=== PATIENT | male | born 1955 | race Caucasian/White ===

== ENCOUNTER 2018-11-04 14:27 | Inpatient (IN) | payer MEDICARE, OTHER ==
[~2018-11-04] VITALS: Ht 182.9 cm; Wt 77.0 kg
[2018-11-04 15:05] LABS: BASOPHILS % (AUTO) 0.1 % (0-1); EOSINOPHILS % (AUTO) 0 % (0-6); HEMATOCRIT 35.8 % (42.0-52.0); HEMOGLOBIN 11.7 g/dl (14.0-17.9); LYMPHOCYTES # (AUTO) 0.5 X10'3 (1.1-4.8); LYMPHOCYTES % (AUTO) 2.3 % (21-51); MEAN CORPUSCULAR HEMOGLOBIN 31.5 PG (27.0-31.0); MEAN CORPUSCULAR HGB CONC 32.7 % (33.0-36.5); MEAN CORPUSCULAR VOLUME 96.1 FL (78-98); MEAN PLATELET VOLUME 8.4 FL (7.4-10.4); MONOCYTES # (AUTO) 0.1 X10'3 (0-0.9); MONOCYTES % (AUTO) 0.6 % (2-12); PLATELET COUNT 248 X10'3 (140-440); RED BLOOD COUNT 3.73 X10'6 (4.70-6.10); RED CELL DISTRIBUTION WIDTH 14.6 % (11.5-14.5); WHITE BLOOD COUNT 19.6 X10'3 (4.5-11.0)
[2018-11-04 15:17] LABS: PLATELET ESTIMATE NORMAL; TOTAL CELLS COUNTED 100
[2018-11-04 15:19] LABS: ALANINE AMINOTRANSFERASE 20 U/L (12-78); ALBUMIN 2.5 G/DL (3.4-5.0); ALBUMIN/GLOBULIN RATIO 0.5 (1.1-1.5); ALKALINE PHOSPHATASE 90 IU/L (46-116); ANION GAP 14 (8-16); ASPARTATE AMINO TRANSFERASE 26 U/L (10-37); BILIRUBIN,TOTAL 0.3 MG/DL (0.1-1.0); BLOOD UREA NITROGEN 34 MG/DL (7-18); BUN/CREATININE RATIO 22.4 (5.4-32.0); CALCIUM 7.9 MG/DL (8.5-10.1); CHLORIDE 104 MMOL/L (99-107); CREATININE 1.52 MG/DL (0.60-1.10); GLUCOSE 85 MG/DL (70-104); POTASSIUM 3.8 MMOL/L (3.5-5.1); SODIUM 140 MMOL/L (135-145); TOTAL CARBON DIOXIDE 22.4 MMOL/L (24-32); TOTAL PROTEIN 7.6 G/DL (6.4-8.2); eGFR 47 ML/MIN
[2018-11-04] MEDS: normal saline 1000ml 1,000 ML IV SCH ×3 (15:30→19:01)
[2018-11-04] MEDS ORDERED: ondansetron/PF 4mg/2ml inj IV PRN (16:10)
[2018-11-04] MEDS ORDERED: magnesium hydroxide 30ml (MOM) UD suspension PO PRN (16:10)
[2018-11-04] MEDS ORDERED: mag hydrox/Alum hydrox/simeth 30ml oral suspension PO PRN (16:10)
[2018-11-04] MEDS ORDERED: acetaminophen 325mg tablet PO PRN (16:10)
[2018-11-04] MEDS: piperacillin/tazo 3.375gm/50ml 50 ML IV SCH (18:15)
[2018-11-04] MEDS: ipratropium/albuterol 3ml nebule NEB SCH ×2 (18:53→23:01)
[2018-11-04] MEDS: enoxaparin 80mg/0.8ml syringe SUBCUT SCH (20:19)
[2018-11-05] MEDS: normal saline 1000ml 1,000 ML IV SCH ×2 (02:10→03:55)
[2018-11-05] MEDS: piperacillin/tazo 3.375gm/50ml 50 ML IV SCH ×4 (02:10→21:03)
[2018-11-05] MEDS: ipratropium/albuterol 3ml nebule NEB SCH ×6 (02:35→22:42)
[2018-11-05] MEDS ORDERED: vancomycin/NS 1 GM ADD-VANTAGE 250 ML IV SCH (08:00)
[2018-11-05] MEDS: aspirin 81mg tablet.DR PO SCH (08:00)
[2018-11-05] MEDS: enoxaparin 80mg/0.8ml syringe SUBCUT SCH ×2 (08:14→21:04)
[2018-11-05] MEDS ORDERED: PHEN100C4 PO (08:43)
[2018-11-05] MEDS ORDERED: PHEN64.8 PO (08:43)
[2018-11-05] MEDS ORDERED: FAMO40TA73 PO (08:43)
[2018-11-05 10:40] LABS: BASOPHILS % (AUTO) 0 % (0-1); EOSINOPHILS # (AUTO) 0.2 X10'3 (0-0.9); HEMATOCRIT 29.7 % (42.0-52.0); HEMOGLOBIN 9.8 g/dl (14.0-17.9); LYMPHOCYTES # (AUTO) 0.5 X10'3 (1.1-4.8); LYMPHOCYTES % (AUTO) 3.1 % (21-51); MEAN CORPUSCULAR HEMOGLOBIN 31.6 PG (27.0-31.0); MEAN CORPUSCULAR VOLUME 95.8 FL (78-98); MEAN PLATELET VOLUME 7.9 FL (7.4-10.4); MONOCYTES # (AUTO) 0.2 X10'3 (0-0.9); MONOCYTES % (AUTO) 0.9 % (2-12); NEUTROPHILS # (AUTO) 16.9 X10'3 (1.8-7.7); PLATELET COUNT 269 X10'3 (140-440); RED CELL DISTRIBUTION WIDTH 14.5 % (11.5-14.5); WHITE BLOOD COUNT 17.8 X10'3 (4.5-11.0)
[2018-11-05 10:59] LABS: ALBUMIN 1.8 G/DL (3.4-5.0); BLOOD UREA NITROGEN 38 MG/DL (7-18); BUN/CREATININE RATIO 27.7 (5.4-32.0); CALCIUM 7.1 MG/DL (8.5-10.1); CHLORIDE 110 MMOL/L (99-107); CREATININE 1.37 MG/DL (0.60-1.10); GLUCOSE 66 MG/DL (70-104); PHENYTOIN (DILANTIN) 2.5 UG/ML (10.0-20.0); POTASSIUM 3.5 MMOL/L (3.5-5.1); TOTAL CARBON DIOXIDE 18.3 MMOL/L (24-32); TROPONIN I 0.35 NG/ML (0.0-0.05); eGFR 52 ML/MIN
[2018-11-05 11:00] VITALS: BP 124/71
[2018-11-05 11:00] LABS: ANION GAP 19 (8-16); SODIUM 147 MMOL/L (135-145)
[2018-11-05] MEDS: phenobarbital 30mg tablet PO SCH ×2 (11:41→23:45)
[2018-11-05 12:13] LABS: PLATELET ESTIMATE NORMAL; TOTAL CELLS COUNTED 100
[2018-11-05] MEDS: phenytoin sod ER 100mg capsule PO SCH ×2 (13:09→23:43)
[2018-11-05] MEDS: famotidine 20mg tablet PO SCH (13:10)
[2018-11-05 15:00] VITALS: BP 102/69
[2018-11-05] MEDS: sodium chloride 0.45% 1,000 ML IV SCH (15:13)
[2018-11-05 19:00] VITALS: BP 101/80
[2018-11-05] MEDS ORDERED: LORazepam 1 MG tablet PO PRN (20:35)
[2018-11-05 23:00] VITALS: BP 112/52
[2018-11-05] MEDS: vancomycin/NS 1 GM ADD-VANTAGE 250 ML IV SCH (23:42)
[2018-11-06] MEDS ORDERED: LIDOcaine 2% 10ml TOPICAL JELLY (Urojet) MM ONE (02:40)
[2018-11-06] MEDS: piperacillin/tazo 3.375gm/50ml 50 ML IV SCH ×4 (02:50→20:24)
[2018-11-06 03:00] VITALS: BP 103/68
[2018-11-06] MEDS: ipratropium/albuterol 3ml nebule NEB SCH ×6 (03:22→23:00)
[2018-11-06] MEDS: sodium chloride 0.45% 1,000 ML IV SCH ×2 (03:58→18:16)
[2018-11-06 05:42] LABS: BASOPHILS % (AUTO) 0 % (0-1); EOSINOPHILS % (AUTO) 0 % (0-6); HEMATOCRIT 27.5 % (42.0-52.0); HEMOGLOBIN 8.9 g/dl (14.0-17.9); LYMPHOCYTES # (AUTO) 0.6 X10'3 (1.1-4.8); LYMPHOCYTES % (AUTO) 4.2 % (21-51); MEAN CORPUSCULAR HEMOGLOBIN 31.1 PG (27.0-31.0); MEAN CORPUSCULAR HGB CONC 32.5 % (33.0-36.5); MEAN CORPUSCULAR VOLUME 95.6 FL (78-98); MEAN PLATELET VOLUME 7.7 FL (7.4-10.4); MONOCYTES # (AUTO) 0.3 X10'3 (0-0.9); MONOCYTES % (AUTO) 2.5 % (2-12); NEUTROPHILS # (AUTO) 12.4 X10'3 (1.8-7.7); NEUTROPHILS % (AUTO) 93.3 % (42-75); PLATELET COUNT 268 X10'3 (140-440); RED BLOOD COUNT 2.88 X10'6 (4.70-6.10); RED CELL DISTRIBUTION WIDTH 14.5 % (11.5-14.5); WHITE BLOOD COUNT 13.3 X10'3 (4.5-11.0)
[2018-11-06 05:56] LABS: ALBUMIN 1.8 G/DL (3.4-5.0); ANION GAP 11 (8-16); BLOOD UREA NITROGEN 33 MG/DL (7-18); BUN/CREATININE RATIO 26.8 (5.4-32.0); CALCIUM 7.7 MG/DL (8.5-10.1); CHLORIDE 115 MMOL/L (99-107); CREATININE 1.23 MG/DL (0.60-1.10); GLUCOSE 125 MG/DL (70-104); POTASSIUM 3.2 MMOL/L (3.5-5.1); SODIUM 149 MMOL/L (135-145); TOTAL CARBON DIOXIDE 22.9 MMOL/L (24-32); eGFR 59 ML/MIN
[2018-11-06 07:00] VITALS: BP 110/74
[2018-11-06] MEDS: aspirin 81mg tablet.DR PO SCH (08:52)
[2018-11-06] MEDS: famotidine 20mg tablet PO SCH (08:52)
[2018-11-06] MEDS: phenytoin sod ER 100mg capsule PO SCH ×2 (08:52→20:23)
[2018-11-06] MEDS: enoxaparin 80mg/0.8ml syringe SUBCUT SCH (08:53)
[2018-11-06] MEDS: phenobarbital 30mg tablet PO SCH ×2 (08:53→22:37)
[2018-11-06] MEDS ORDERED: potassium Cl 20 mEq SR tablet PO PRN (09:30)
[2018-11-06] MEDS ORDERED: magnesium 4gm in 100ml NS 100 ML IV PRN (09:30)
[2018-11-06] MEDS ORDERED: magnesium Cl slow-release 64mg tablet PO PRN (09:30)
[2018-11-06] MEDS ORDERED: potassium Cl 40MEQ/NS 500ml 500 ML IV PRN ×2 (09:30)
[2018-11-06] MEDS: vancomycin/NS 1 GM ADD-VANTAGE 250 ML IV SCH ×2 (09:53→22:36)
[2018-11-06] MEDS: potassium Cl 20 mEq SR tablet PO PRN ×2 (09:53→17:24)
[2018-11-06 11:00] VITALS: BP 99/59
[2018-11-06 15:00] VITALS: BP 118/66
[2018-11-06] MEDS: carVEDilol 3.125mg tablet PO SCH (18:53)
[2018-11-06 19:00] VITALS: BP 106/69
[2018-11-06] MEDS ORDERED: VANCOMYCIN LEVEL IV NR (19:30)
[2018-11-06] MEDS ORDERED: VANCOMYCIN LEVEL IV ONE (20:30)
[2018-11-06 23:00] VITALS: BP 113/72
[2018-11-07] MEDS: potassium Cl 20 mEq SR tablet PO PRN (00:47)
[2018-11-07] MEDS: piperacillin/tazo 3.375gm/50ml 50 ML IV SCH ×3 (01:19→14:00)
[2018-11-07 03:00] VITALS: BP 107/61
[2018-11-07] MEDS: ipratropium/albuterol 3ml nebule NEB SCH ×3 (03:00→14:56)
[2018-11-07 05:28] LABS: BASOPHILS % (AUTO) 0.2 % (0-1); EOSINOPHILS % (AUTO) 0.8 % (0-6); HEMATOCRIT 25.9 % (42.0-52.0); HEMOGLOBIN 8.4 g/dl (14.0-17.9); LYMPHOCYTES # (AUTO) 0.8 X10'3 (1.1-4.8); LYMPHOCYTES % (AUTO) 12.7 % (21-51); MEAN CORPUSCULAR HEMOGLOBIN 31.2 PG (27.0-31.0); MEAN CORPUSCULAR HGB CONC 32.5 % (33.0-36.5); MEAN PLATELET VOLUME 7.8 FL (7.4-10.4); MONOCYTES # (AUTO) 0.5 X10'3 (0-0.9); NEUTROPHILS # (AUTO) 4.7 X10'3 (1.8-7.7); NEUTROPHILS % (AUTO) 78.3 % (42-75); PLATELET COUNT 254 X10'3 (140-440); RED BLOOD COUNT 2.69 X10'6 (4.70-6.10); RED CELL DISTRIBUTION WIDTH 14.6 % (11.5-14.5)
[2018-11-07 05:49] LABS: ALBUMIN 1.5 G/DL (3.4-5.0); ANION GAP 9 (8-16); BLOOD UREA NITROGEN 23 MG/DL (7-18); BUN/CREATININE RATIO 23.7 (5.4-32.0); CALCIUM 7.5 MG/DL (8.5-10.1); CHLORIDE 109 MMOL/L (99-107); CREATININE 0.97 MG/DL (0.60-1.10); GLUCOSE 100 MG/DL (70-104); POTASSIUM 3.6 MMOL/L (3.5-5.1); SODIUM 142 MMOL/L (135-145); TOTAL CARBON DIOXIDE 23.7 MMOL/L (24-32); eGFR 78 ML/MIN
[2018-11-07 06:00] VITALS: BP 110/69
[2018-11-07] MEDS ORDERED: atorvastatin 20mg tablet PO SCH (08:00)
[2018-11-07] MEDS: vancomycin/NS 1 GM ADD-VANTAGE 250 ML IV SCH (08:12)
[2018-11-07] MEDS: phenytoin sod ER 100mg capsule PO SCH (08:12)
[2018-11-07] MEDS: aspirin 81mg tablet.DR PO SCH (08:13)
[2018-11-07] MEDS: famotidine 20mg tablet PO SCH (08:13)
[2018-11-07] MEDS: carVEDilol 3.125mg tablet PO SCH (08:13)
[2018-11-07] MEDS: sodium chloride 0.45% 1,000 ML IV SCH (08:34)
[2018-11-07] MEDS: phenobarbital 30mg tablet PO SCH (10:32)
[2018-11-07 11:00] VITALS: BP 101/64
[2018-11-07] MEDS ORDERED: ASPI-1071 PO (13:06)
[2018-11-07] MEDS ORDERED: LEVO750T21 PO (13:06)
[2018-11-07] MEDS ORDERED: ATOR20TA66 PO (13:06)
[2018-11-07] MEDS ORDERED: COR3.125T PO (13:06)
[2018-11-07 17:00] VITALS: BP 125/71
[2018-11-07] MEDS ORDERED: lactobacillus rhamnosus 10,000 MMU CELLS/CAPSULE PO SCH (20:00)
== END 2018-11-07 18:33 | disposition home health service (06) | DRG 871 ==
LOC: ER 14:27 → ED HOLD 16:10 → PCU 3S 11-05 09:25
PROVIDERS: ADMIT Family Medicine; ATTEND Family Medicine
PROC: 5A09357 Assistance with Respiratory Ventilation, Less than 24 Consecutive Hours, Continuous Positive Airway Pressure (ICD-10-PCS; principal; 2018-11-04)
DX: A41.9 Sepsis, unspecified organism (principal); J69.0 Pneumonitis due to inhalation of food and vomit; J96.01 Acute respiratory failure with hypoxia; I21.A1 Myocardial infarction type 2; N17.9 Acute kidney failure, unspecified; E87.0 Hyperosmolality and hypernatremia; R31.9 Hematuria, unspecified; G40.909 Epilepsy, unspecified, not intractable, without status epilepticus; J44.9 Chronic obstructive pulmonary disease, unspecified; R62.50 Unspecified lack of expected normal physiological development in childhood; Z79.899 Other long term (current) drug therapy
CPT/HCPCS: 36415; 80048; 80053; 80185; 80202; 83735; 83880; 84145; 84484; 85025; 92616; 93005; 93308; 94640; 94660; 94760; 97116; 97161; 97530; 99285; G0378; J1650; J2543; J3370; J7030

== ENCOUNTER 2019-12-03 13:22 | Emergency (ER) | payer MEDICARE, MEDICAID ==
[~2019-12-03] VITALS: Ht 182.9 cm; Wt 61.0 kg
[~2019-12-03 13:22] MED LIST: ASPI-1071 PO; ATOR20TA66 PO; COR3.125T PO; FAMO40TA73 PO; PHEN100C4 PO; PHEN64.8 PO
[2019-12-03 15:05] LABS: BASOPHILS % (AUTO) 0.4 % (0-1); EOSINOPHILS # (AUTO) 0.1 X10'3 (0-0.9); EOSINOPHILS % (AUTO) 0.8 % (0-6); HEMATOCRIT 26.8 % (42.0-52.0); HEMOGLOBIN 8.9 g/dl (14.0-17.9); LYMPHOCYTES # (AUTO) 1.9 X10'3 (1.1-4.8); LYMPHOCYTES % (AUTO) 18.6 % (21-51); MEAN CORPUSCULAR HEMOGLOBIN 30.8 PG (27.0-31.0); MEAN CORPUSCULAR HGB CONC 33.1 g/dL (33.0-36.5); MEAN CORPUSCULAR VOLUME 93.1 FL (78-98); MEAN PLATELET VOLUME 8.7 FL (7.4-10.4); MONOCYTES # (AUTO) 0.8 X10'3 (0-0.9); MONOCYTES % (AUTO) 7.8 % (2-12); NEUTROPHILS # (AUTO) 7.4 X10'3 (1.8-7.7); NEUTROPHILS % (AUTO) 72.4 % (42-75); PLATELET COUNT 254 X10'3 (140-440); RED BLOOD COUNT 2.88 X10'6 (4.70-6.10); RED CELL DISTRIBUTION WIDTH 17.2 % (11.5-14.5); WHITE BLOOD COUNT 10.2 X10'3 (4.5-11.0)
[2019-12-03 15:19] LABS: PARTIAL THROMBOPLASTIN TIME 27 SECONDS (22-32)
[2019-12-03 15:33] LABS: ALANINE AMINOTRANSFERASE 25 U/L (12-78); ALBUMIN 3.3 G/DL (3.4-5.0); ALBUMIN/GLOBULIN RATIO 0.7 (1.1-1.5); ALKALINE PHOSPHATASE 134 IU/L (46-116); ANION GAP 11 (8-16); ASPARTATE AMINO TRANSFERASE 28 U/L (10-37); BILIRUBIN,TOTAL 0.2 MG/DL (0.1-1.0); BLOOD UREA NITROGEN 43 MG/DL (7-18); BUN/CREATININE RATIO 28.3 (5.4-32.0); CALCIUM 8.2 MG/DL (8.5-10.1); CHLORIDE 107 MMOL/L (99-107); CREATININE 1.52 MG/DL (0.60-1.10); GLUCOSE 101 MG/DL (70-104); POTASSIUM 4.6 MMOL/L (3.5-5.1); SODIUM 141 MMOL/L (135-145); TOTAL CARBON DIOXIDE 23.4 MMOL/L (24-32); eGFR 46 ML/MIN
[2019-12-03 18:33] LABS: UA COLLECTION TYPE URINAL
[2019-12-03 18:34] LABS: CLARITY,URINE BLOODY (Clear); COLOR,URINE RED (Yellow)
[2019-12-03 18:42] LABS: RBC,URINE TNTC /HPF (0-2); WBC,URINE TNTC /HPF (0-4)
[2019-12-03 18:43] LABS: BACTERIA,URINE 3+ /HPF (Neg)
[2019-12-03 18:44] LABS: SQUAMOUS EPITHELIAL CELL,UR FEW /LPF (FEW)
--- NOTE | 2019-12-03 18:57 | NUR ---
Attempt to obtain UA via straight cather per PA order, unable to pass prostated, acute care occupational therapist at bedside. Patient urinated on self after catheter was taken out, PA Bjorn made aware.
[2019-12-03] MEDS ORDERED: normal saline 1000ML IV soln IVB ONE (19:10)
[2019-12-03] MEDS ORDERED: LIDOcaine 2% 10ml TOPICAL JELLY (Urojet) MM ONE (20:10)
--- NOTE | 2019-12-03 22:48 | NUR ---
out put with catheter 750 bloody urine, bladder scanned after 73 ml remaining
[2019-12-03 22:54] VITALS: BP 96/53
--- NOTE | 2019-12-03 23:39 | NUR ---
TOOK OUT COUDE CATHETER, INSERTED 3 WAY 18 BULGARIAN, IRRIGATE TILL CLEAR PER ELSIE MON, NO PROBLEMS WITH PROCEDURE PATIENT TOLERATED WELL.
--- NOTE | 2019-12-04 00:14 | NUR ---
PATIENT HAD 3 WAY 18 KOREAN INDWELLING CATHETER WITH 3 LITER IRRIGATION, FROM DARK RED TO LIGHT BROWN ELSIE MON AT BEDSIDE.
== END 2019-12-04 00:44 | disposition home or self-care (01) ==
LOC: ER 13:22
DX: N13.9 Obstructive and reflux uropathy, unspecified (principal); R31.9 Hematuria, unspecified; R06.02 Shortness of breath; J44.9 Chronic obstructive pulmonary disease, unspecified; I25.10 Atherosclerotic heart disease of native coronary artery without angina pectoris; Z79.82 Long term (current) use of aspirin; Z79.899 Other long term (current) drug therapy
CPT/HCPCS: 36415; 51700; 71045; 74176; 80053; 81001; 83605; 84145; 85025; 85610; 85730; 87040; 87088; 99284

== ENCOUNTER 2019-12-06 14:09 | Emergency (ER) | payer MEDICARE, MEDICAID ==
[~2019-12-06] VITALS: Ht 185.4 cm; Wt 55.9 kg
[2019-12-06] MEDS ORDERED: normal saline 1000ML IV soln IVB ONE ×2 (14:15→16:40)
[2019-12-06 14:48] LABS: BASOPHILS % (AUTO) 0.3 % (0-1); EOSINOPHILS # (AUTO) 0.1 X10'3 (0-0.9); EOSINOPHILS % (AUTO) 0.6 % (0-6); HEMOGLOBIN 9.5 g/dl (14.0-17.9); LYMPHOCYTES % (AUTO) 11.5 % (21-51); MEAN CORPUSCULAR HEMOGLOBIN 31.9 PG (27.0-31.0); MEAN CORPUSCULAR HGB CONC 33.8 g/dL (33.0-36.5); MEAN CORPUSCULAR VOLUME 94.2 FL (78-98); MEAN PLATELET VOLUME 7.5 FL (7.4-10.4); MONOCYTES # (AUTO) 0.7 X10'3 (0-0.9); MONOCYTES % (AUTO) 8.3 % (2-12); NEUTROPHILS # (AUTO) 6.9 X10'3 (1.8-7.7); NEUTROPHILS % (AUTO) 79.3 % (42-75); PLATELET COUNT 311 X10'3 (140-440); RED BLOOD COUNT 2.97 X10'6 (4.70-6.10); RED CELL DISTRIBUTION WIDTH 17.2 % (11.5-14.5); WHITE BLOOD COUNT 8.7 X10'3 (4.5-11.0)
[2019-12-06 15:13] LABS: ALANINE AMINOTRANSFERASE 30 U/L (12-78); ALBUMIN 3.3 G/DL (3.4-5.0); ALBUMIN/GLOBULIN RATIO 0.7 (1.1-1.5); ALKALINE PHOSPHATASE 132 IU/L (46-116); ANION GAP 11 (8-16); ASPARTATE AMINO TRANSFERASE 45 U/L (10-37); BILIRUBIN,TOTAL 0.3 MG/DL (0.1-1.0); BLOOD UREA NITROGEN 34 MG/DL (7-18); BUN/CREATININE RATIO 21.3 (5.4-32.0); CALCIUM 8.7 MG/DL (8.5-10.1); CHLORIDE 110 MMOL/L (99-107); GLUCOSE 93 MG/DL (70-104); POTASSIUM 4.4 MMOL/L (3.5-5.1); SODIUM 146 MMOL/L (135-145); TOTAL CARBON DIOXIDE 24.8 MMOL/L (24-32); eGFR 44 ML/MIN
[2019-12-06] MEDS ORDERED: nitroGLYCERIN 1gm ointment UD TP ONE (15:15)
[2019-12-06] MEDS ORDERED: aspirin 81mg tab.chew PO ONE (15:15)
[2019-12-06 15:26] LABS: CLARITY,URINE TURBID (Clear); COLOR,URINE BROWN (Yellow)
[2019-12-06 15:35] LABS: UA COLLECTION TYPE FOLEY CATH
[2019-12-06 15:37] LABS: BACTERIA,URINE 1+ /HPF (Neg); MUCUS STRANDS NONE SEEN /LPF (Neg); RBC,URINE TNTC /HPF (0-2); SQUAMOUS EPITHELIAL CELL,UR NONE SEEN /LPF (FEW)
[2019-12-06 16:17] LABS: CKMB RELATIVE INDEX 2.3 RATIO (0-2.5); CREATINE KINASE 407 U/L (39-308)
[2019-12-06 17:13] LABS: PHENYTOIN (DILANTIN) 2.7 UG/ML (10.0-20.0)
[2019-12-06] MEDS ORDERED: POTA10TA36 PO (18:02)
[2019-12-06] MEDS ORDERED: OMEP40CA13 PO (18:02)
[2019-12-06] MEDS ORDERED: METO25TA6 PO (18:02)
[2019-12-06] MEDS ORDERED: MELA3TAB64 PO (18:02)
[2019-12-06] MEDS ORDERED: BACDS PO (18:02)
[2019-12-06] MEDS ORDERED: ASCO500C15 PO (18:02)
[2019-12-06] MEDS ORDERED: PHEN100C12 PO (18:02)
[2019-12-06] MEDS ORDERED: ATR0.5NEB NEB (18:02)
[2019-12-06] MEDS ORDERED: FURO20TA4 PO (18:02)
[2019-12-06] MEDS ORDERED: ATOR20TA66 PO (18:02)
[2019-12-06] MEDS ORDERED: SERT50TA10 PO (18:02)
[2019-12-06] MEDS ORDERED: ASPI81TA52 PO (18:02)
[2019-12-06] MEDS ORDERED: OXYB5TAB16 PO (18:02)
[2019-12-06] MEDS ORDERED: GLYC113C TP (18:02)
[2019-12-06] MEDS ORDERED: MULT-955 PO (18:02)
[2019-12-06] MEDS ORDERED: FLO0.4C PO (18:02)
--- NOTE | 2019-12-06 18:31 | NUR ---
MD Oliva currently in the room speaking with pt's caregiver about plan of care and discharge. Spoke to caregiver about discharge who reported that after hours they use their personal vehicle to transport the patient. Caregiver was agreeable to transporting pt home in her care if she had assistance loading pt into car.
[2019-12-06] MEDS ORDERED: LORazepam 2 mg/ml vial IV ONE ×2 (18:50→19:15)
[2019-12-06] MEDS ORDERED: LORA-269 PO (19:52)
[2019-12-06 20:57] VITALS: BP 108/64
== END 2019-12-06 21:00 | disposition home or self-care (01) ==
LOC: ER 14:09
DX: E86.0 Dehydration (principal); R41.82 Altered mental status, unspecified; R25.1 Tremor, unspecified; I25.10 Atherosclerotic heart disease of native coronary artery without angina pectoris; J44.9 Chronic obstructive pulmonary disease, unspecified; Z98.890 Other specified postprocedural states; Z79.82 Long term (current) use of aspirin; Z79.899 Other long term (current) drug therapy; Z88.8 Allergy status to other drugs, medicaments and biological substances
CPT/HCPCS: 36415; 71045; 80053; 80185; 81001; 82550; 82553; 82948; 83874; 85025; 87088; 93005; 96361; 96374; 99284; J2060; J7030

== ENCOUNTER 2019-12-14 13:52 | Emergency (ER) | payer MEDICARE, MEDICAID ==
[~2019-12-14] VITALS: Ht 182.9 cm; Wt 63.0 kg
[~2019-12-14 13:52] MED LIST changes: +ASCO500C15 PO; -ASPI-1071 PO; +ASPI81TA52 PO; +ATR0.5NEB NEB; +BACDS PO; -COR3.125T PO; -FAMO40TA73 PO; +FLO0.4C PO; +FURO20TA4 PO; +GLYC113C TP; +LORA-269 PO; +MELA3TAB64 PO; +METO25TA6 PO; +MULT-955 PO; +OMEP40CA13 PO; +OXYB5TAB16 PO; +PHEN100C12 PO; -PHEN100C4 PO; -PHEN64.8 PO; +POTA10TA36 PO; +SERT50TA10 PO
[2019-12-14] MEDS ORDERED: normal saline 1000ML IV soln IVB ONE (14:30)
[2019-12-14 15:13] LABS: BASOPHILS % (AUTO) 0.4 % (0-1); EOSINOPHILS # (AUTO) 0.1 X10'3 (0-0.9); EOSINOPHILS % (AUTO) 2.2 % (0-6); HEMATOCRIT 29.6 % (42.0-52.0); LYMPHOCYTES # (AUTO) 0.9 X10'3 (1.1-4.8); LYMPHOCYTES % (AUTO) 21.8 % (21-51); MEAN CORPUSCULAR HEMOGLOBIN 32.3 PG (27.0-31.0); MEAN CORPUSCULAR HGB CONC 33.8 g/dL (33.0-36.5); MEAN CORPUSCULAR VOLUME 95.6 FL (78-98); MEAN PLATELET VOLUME 7.8 FL (7.4-10.4); MONOCYTES # (AUTO) 0.3 X10'3 (0-0.9); MONOCYTES % (AUTO) 7.2 % (2-12); NEUTROPHILS # (AUTO) 2.8 X10'3 (1.8-7.7); NEUTROPHILS % (AUTO) 68.4 % (42-75); PLATELET COUNT 245 X10'3 (140-440); RED BLOOD COUNT 3.09 X10'6 (4.70-6.10); RED CELL DISTRIBUTION WIDTH 18.7 % (11.5-14.5)
[2019-12-14 15:15] LABS: PARTIAL THROMBOPLASTIN TIME 27 SECONDS (22-32)
[2019-12-14 15:20] LABS: ALANINE AMINOTRANSFERASE 37 U/L (12-78); ALBUMIN 3.2 G/DL (3.4-5.0); ALBUMIN/GLOBULIN RATIO 0.7 (1.1-1.5); ALKALINE PHOSPHATASE 125 IU/L (46-116); ANION GAP 5 (8-16); ASPARTATE AMINO TRANSFERASE 32 U/L (10-37); BILIRUBIN,TOTAL 0.1 MG/DL (0.1-1.0); BLOOD UREA NITROGEN 23 MG/DL (7-18); BUN/CREATININE RATIO 20.9 (5.4-32.0); CALCIUM 8.3 MG/DL (8.5-10.1); CHLORIDE 103 MMOL/L (99-107); GLUCOSE 193 MG/DL (70-104); PHENYTOIN (DILANTIN) 1.1 UG/ML (10.0-20.0); POTASSIUM 4.4 MMOL/L (3.5-5.1); SODIUM 138 MMOL/L (135-145); TOTAL CARBON DIOXIDE 29.9 MMOL/L (24-32); TOTAL PROTEIN 7.6 G/DL (6.4-8.2); eGFR 67 ML/MIN
[2019-12-14] MEDS ORDERED: phenytoin sod ER 100mg capsule PO ONE (15:30)
[2019-12-14 15:33] LABS: CLARITY,URINE CLOUDY (Clear); COLOR,URINE AMBER (Yellow); GLUCOSE, URINE NEGATIVE (Neg); KETONES,URINE NEGATIVE (Neg); LEUKOCYTE ESTERASE ,URINE TRACE (Neg); NITRITES, URINE NEGATIVE (Neg); OCCULT BLOOD,URINE LARGE (Neg); PROTEIN,URINE 30 mg/dl (Neg); UROBILINOGEN,URINE 0.2 E.U/dL (0.2-1.0)
[2019-12-14 15:33] LABS: LARGE PLATELETS MODERATE; PLATELET ESTIMATE NORMAL
[2019-12-14 15:34] LABS: ANISOCYTOSIS 2+
[2019-12-14 15:34] LABS: UA COLLECTION TYPE FOLEY CATH
[2019-12-14 15:54] LABS: BACTERIA,URINE FEW /HPF (Neg); MUCUS STRANDS FEW /LPF (Neg); RBC,URINE TNTC /HPF (0-2); SQUAMOUS EPITHELIAL CELL,UR MODERATE /LPF (FEW)
[2019-12-14 16:27] VITALS: BP 101/55
--- NOTE | 2019-12-17 09:40 | NUR ---
PT. LIVES AT [facility]. STAFF TOLD ME TO FAX THEM THE RESULT OF UA CULTURE AND THE RECOMENDED DRUG AND THEY WOULD CONTACT PT'S PMD DR. SMITH FOR THE MEDICATION ORDER..... FAX SENT
== END 2019-12-14 17:11 | disposition home or self-care (01) ==
LOC: ER 13:53
DX: G40.909 Epilepsy, unspecified, not intractable, without status epilepticus (principal); R89.2 Abnormal level of other drugs, medicaments and biological substances in specimens from other organs, systems and tissues; I25.10 Atherosclerotic heart disease of native coronary artery without angina pectoris; J44.9 Chronic obstructive pulmonary disease, unspecified; Z98.890 Other specified postprocedural states; Z79.899 Other long term (current) drug therapy; Z79.82 Long term (current) use of aspirin
CPT/HCPCS: 36415; 71045; 80053; 80185; 81001; 85025; 85610; 85730; 87088; 93005; 99284; J7030

== ENCOUNTER 2019-12-30 09:24 | Emergency (ER) | payer MEDICARE, MEDICAID ==
[~2019-12-30] VITALS: Ht 182.9 cm; Wt 65.9 kg
[2019-12-30] MEDS ORDERED: CefTRIAXone 2gm/D5W 50ml 50 ML IV ONE (09:45)
[2019-12-30] MEDS ORDERED: normal saline 1000ML IV soln IVB ONE (09:45)
[2019-12-30 10:08] LABS: CLARITY,URINE TURBID (Clear); COLOR,URINE BROWN (Yellow); GLUCOSE, URINE NEGATIVE (Neg); KETONES,URINE 15 mg/dl (Neg); LEUKOCYTE ESTERASE ,URINE LARGE (Neg); NITRITES, URINE POSITIVE (Neg); OCCULT BLOOD,URINE LARGE (Neg); PH,URINE 5.5 (4.8-8.0); PROTEIN,URINE >=300 mg/dl (Neg)
[2019-12-30 10:12] LABS: UA COLLECTION TYPE FOLEY CATH
[2019-12-30 10:15] LABS: BACTERIA,URINE 2+ /HPF (Neg); MUCUS STRANDS NONE SEEN /LPF (Neg); RBC,URINE 50-100 /HPF (0-2); SQUAMOUS EPITHELIAL CELL,UR NONE SEEN /LPF (FEW); WBC,URINE TNTC /HPF (0-4)
[2019-12-30] MEDS ORDERED: fluconazole-Diflucan 200mg/NS 100 ML IV STA (10:20)
[2019-12-30 10:31] LABS: BASOPHILS % (AUTO) 0.3 % (0-1); EOSINOPHILS % (AUTO) 0.3 % (0-6); HEMATOCRIT 28.4 % (42.0-52.0); HEMOGLOBIN 9.4 g/dl (14.0-17.9); LYMPHOCYTES # (AUTO) 0.9 X10'3 (1.1-4.8); LYMPHOCYTES % (AUTO) 18.9 % (21-51); MEAN CORPUSCULAR HEMOGLOBIN 31.5 PG (27.0-31.0); MEAN CORPUSCULAR HGB CONC 33.1 g/dL (33.0-36.5); MEAN CORPUSCULAR VOLUME 94.9 FL (78-98); MEAN PLATELET VOLUME 7.9 FL (7.4-10.4); MONOCYTES # (AUTO) 0.9 X10'3 (0-0.9); MONOCYTES % (AUTO) 19.4 % (2-12); NEUTROPHILS # (AUTO) 2.9 X10'3 (1.8-7.7); NEUTROPHILS % (AUTO) 61.1 % (42-75); PLATELET COUNT 287 X10'3 (140-440); RED BLOOD COUNT 2.99 X10'6 (4.70-6.10); RED CELL DISTRIBUTION WIDTH 17.4 % (11.5-14.5); WHITE BLOOD COUNT 4.8 X10'3 (4.5-11.0)
[2019-12-30 10:52] LABS: ALANINE AMINOTRANSFERASE 20 U/L (12-78); ALBUMIN 2.8 G/DL (3.4-5.0); ALBUMIN/GLOBULIN RATIO 0.6 (1.1-1.5); ALKALINE PHOSPHATASE 121 IU/L (46-116); ANION GAP 8 (8-16); ASPARTATE AMINO TRANSFERASE 28 U/L (10-37); BILIRUBIN,TOTAL 0.2 MG/DL (0.1-1.0); BLOOD UREA NITROGEN 24 MG/DL (7-18); BUN/CREATININE RATIO 24.2 (5.4-32.0); CALCIUM 8.7 MG/DL (8.5-10.1); CHLORIDE 102 MMOL/L (99-107); CREATININE 0.99 MG/DL (0.60-1.10); GLUCOSE 108 MG/DL (70-104); POTASSIUM 4.2 MMOL/L (3.5-5.1); SODIUM 134 MMOL/L (135-145); TOTAL CARBON DIOXIDE 23.8 MMOL/L (24-32); TOTAL PROTEIN 7.4 G/DL (6.4-8.2); eGFR 76 ML/MIN
[2019-12-30 10:59] LABS: ANISOCYTOSIS 1+; PLATELET ESTIMATE NORMAL; TOTAL CELLS COUNTED 100
[2019-12-30] MEDS ORDERED: FLUC100T PO (11:06)
--- NOTE | 2019-12-30 11:16 | NUR ---
ASSIST WITH CHANGING PT'S DIAPER, SMALL AMOUNT OF STOOL.
[2019-12-30 12:55] VITALS: BP 98/50
== END 2019-12-30 13:00 | disposition home or self-care (01) ==
LOC: ER 09:25
DX: N30.00 Acute cystitis without hematuria (principal); I25.10 Atherosclerotic heart disease of native coronary artery without angina pectoris; I25.2 Old myocardial infarction; J44.9 Chronic obstructive pulmonary disease, unspecified; Z95.1 Presence of aortocoronary bypass graft; Z98.890 Other specified postprocedural states; Z79.899 Other long term (current) drug therapy; Z79.82 Long term (current) use of aspirin
CPT/HCPCS: 80053; 81001; 83605; 84145; 85025; 87040; 87077; 87088; 87186; 96365; 96375; 99284; J0696; J1450; J7030